=== PATIENT | female | born 1955 | race Caucasian/White ===

== ENCOUNTER 2019-10-10 08:29 | Outpatient (CLI) | payer OTHER, SELFPAY ==
--- NOTE | 2019-10-10 13:22 | PFTS_ITS ---
Date of Study:10/10/19 Date of Dictation: MECHANICS: Forced vital capacity (FVC) is reduced. Forced expiratory volume in one second (FEV1) is reduced. FEV1/FVC is reduced. FLOW VOLUME LOOP: Significant scooping. LUNG VOLUMES: Total lung capacity (TLC) is normal. Residual volume (RV) is increased. DIFFUSING CAPACITY FOR CARBON MONOXIDE: Normal. INTERPRETATION: The pulmonary function tests are consistent with moderate obstruction. There is significant postbronchodilator challenge. Lung volumes are consistent with air trapping. Gas exchange (DLCO) is normal. MTDD
== END 2019-10-10 08:30 | disposition home or self-care (01) ==
LOC: RT 08:33
PROVIDERS: PCP Internal Medicine; Visit Provider Internal Medicine
DX: J43.1 Panlobular emphysema (principal)
CPT/HCPCS: 94060; 94726; 94729; J7611

== ENCOUNTER 2020-03-26 10:50 | Outpatient (CLI) | payer OTHER, SELFPAY ==
--- NOTE | 2020-03-26 10:55 | MM_ITS ---
WS: [id number] BILATERAL DIGITAL SCREENING MAMMOGRAPHY WITH CAD CLINICAL INFORMATION: SCREENING HISTORY: Screening mammogram. No current complaints. COMPARISON: TECHNIQUE: Bilateral CC and MLO views. FINDINGS: Scattered fibroglandular densities bilaterally. No suspicious focal mass, asymmetry, calcifications, or architectural distortion. No evidence of malignancy. Punctate calcification right breast MM/[id number] IMPRESSION: BI-RADS: 2-Benign FOLLOW UP: 1 Year Follow-up Recommend return to annual screening mammography.
== END 2020-03-26 10:51 | disposition home or self-care (01) ==
LOC: RADSHAW 10:53
PROVIDERS: PCP Internal Medicine; Visit Provider Internal Medicine
DX: Z12.31 Encounter for screening mammogram for malignant neoplasm of breast (principal)
CPT/HCPCS: 77067

== ENCOUNTER 2020-08-11 10:21 | Outpatient (CLI) | payer OTHER, SELFPAY ==
--- NOTE | 2020-08-11 10:27 | XR_ITS ---
WS: [id number] Exam: XR knee RT 1-2V [id number] Date/Time of Exam: 08/11/2020 10:27 AM Reason For Exam: RIGHT KNEE PAIN Comparison 05/03/2016. No fracture or dislocation. The joint compartments appear relatively well preserved. No joint effusio n. No change. XR/XR knee RT 1-2V [id number] IMPRESSION: 1. Unremarkable right knee.
== END 2020-08-11 10:22 | disposition home or self-care (01) ==
PROVIDERS: PCP Internal Medicine; Visit Provider Dermatology
DX: Z02.71 Encounter for disability determination (principal); M25.561 Pain in right knee
CPT/HCPCS: 73560

== ENCOUNTER 2021-02-04 08:37 | Outpatient (CLI) | payer OTHER, SELFPAY ==
--- NOTE | 2021-02-04 09:00 | CT_ITS ---
WS: [id number] CT CHEST TECHNIQUE: Contrast enhanced CT of the chest with coronal and sagittal reformatted images. CLINICAL INFORMATION: Follow up COMPARISON: CT 3 DLP: 539.[address] scans at [facility] use at least one of these dose optimization techniques: automated e xposure control; mA and/or kV adjustment per patient size (includes targeted exams where dose is matc hed to clinical indication); or iterative reconstruction. FINDINGS: Stable 5 mm nodule in the lingula. Mild chronic emphysematous changes. No acute pulmonary infiltrates . No focal pneumonia or pleural fluid. Additional tiny stable subpleural nodule right upper lobe lizzie uring 3 mm. Stable tiny perifissure nodule measuring 3 mm left lung. Normal caliber thoracic aorta. Proximal main pulmonary arteries are normal. No mediastinal or hilar l ymphadenopathy. No axillary lymphadenopathy. Adrenal glands are normal. Tiny cyst upper pole left kidney. Small esophageal hiatal hernia. CT/CT chest w con* [id number] IMPRESSION: 1. Previously described 5 mm noncalcified nodule in the lingula is stable. Rec ommend 12 month follow-up. 2. Additional tiny 2 to 3 mm subpleural nodules right upper lobe and along the left fissure also stable. 3. Mild chronic emphysematous changes. No acute pulmonary infiltrates. 4. No mediastinal or hilar lymphadenopathy. 5. Small esophageal hiatal hernia.
[2021-02-04 09:23] LABS: Blood Urea Nitrogen 12 mg/dL (8-23)
[2021-02-04] MEDS: iohexol 300 mg/mL 100 mL Btl IV (09:28)
== END 2021-02-04 08:38 | disposition home or self-care (01) ==
PROVIDERS: PCP Internal Medicine; Visit Provider Internal Medicine
DX: R93.89 Abnormal findings on diagnostic imaging of other specified body structures (principal); K44.9 Diaphragmatic hernia without obstruction or gangrene; R91.8 Other nonspecific abnormal finding of lung field
CPT/HCPCS: 71260; 82565; 84520; Q9967

== ENCOUNTER 2022-01-01 08:10 | Outpatient (CLI) | payer OTHER, SELFPAY ==
--- NOTE | 2022-01-01 08:25 | MM_ITS ---
WS: [id number] BILATERAL SCREENING DIGITAL TOMOSYNTHESIS MAMMOGRAM WITH CAD HISTORY: SCREENING COMPARISON: 03/26/2020 and 07/27/2018 Bilateral CC and MLO views with tomosynthesis and synthetic mammography submitted. Computer aided det ection analyzed. Breast composition: There are scattered areas of fibroglandular density. No suspicious masses, microc alcifications or architectural distortion. Interval change in appearance of the breasts since the floyd or examinations. There is mild diffuse trabecular thickening. Mild skin thickening. MM/[place] [id number] IMPRESSION: BI-RADS: 2-Benign FOLLOW UP: 1 Year Follow-up Mild trabecular prominence and skin thickening involving both breasts. Diffuse process and favor this is probably systemic and may be related to fluid overloa d or CHF.
== END 2022-01-01 08:11 | disposition home or self-care (01) ==
LOC: RAD 08:11
PROVIDERS: PCP Internal Medicine; Visit Provider Internal Medicine
DX: Z12.31 Encounter for screening mammogram for malignant neoplasm of breast (principal)
CPT/HCPCS: 77063; 77067

== ENCOUNTER → 2022-09-28 09:52 | Outpatient (BNVA) | payer MEDICARE, OTHER, SELFPAY | PROVIDERS: PCP Nurse Practitioner Family; Visit Provider Nurse Practitioner Family | DX: L98.9 Disorder of the skin and subcutaneous tissue, unspecified (principal) | CPT/HCPCS: 87070 ==

== ENCOUNTER 2022-10-28 10:02 | Outpatient (CLI) | payer MEDICARE, OTHER, SELFPAY ==
--- NOTE | 2022-10-28 10:08 | MM_ITS ---
WS: [id number] BILATERAL 3D TOMOSYNTHESIS DIGITAL DIAGNOSTIC MAMMOGRAPHY WITH CAD CLINICAL INFORMATION: RT BREAST PAIN HISTORY: RIGHT breast pain COMPARISON: 2021 TECHNIQUE: Bilateral CC, MLO, and ML views. FINDINGS: The breasts are composed of heterogeneous fibroglandular density, which can limit the detection of sm all underlying mass lesions. Punctate and lucent centered calcifications. No new suspicious mammograp hic parenchymal abnormalities in the RIGHT breast visualized. Ultrasound is pending. Mild stable trab ecular thickening in the breasts bilaterally. LEFT breast is unchanged and unremarkable. ULTRASOUND BREAST RIGHT TECHNIQUE: Ultrasound right breast focused area of concern. CLINICAL INFORMATION: RT BREAST PAIN FINDINGS: Ultrasound RIGHT breast in the area of concern upper outer RIGHT breast at the 10:00 position extendi ng from the ribs to the nipple. No cystic or solid lesions. No underlying parenchymal tissues. No abn ormalities in the area of concern. MM/[place] [id number] IMPRESSION: BI-RADS: 2-Benign FOLLOW UP: 1 Year Follow-up Recommend return to annual screening mammography.
== END 2022-10-28 10:03 | disposition home or self-care (01) ==
PROVIDERS: PCP Family Medicine; Visit Provider Family Medicine
DX: N64.4 Mastodynia (principal)
CPT/HCPCS: 76642; 77062; G0279

== ENCOUNTER → 2022-12-31 09:58 | Outpatient (BNVA) | payer MEDICARE, OTHER, SELFPAY | PROVIDERS: PCP Family Medicine; Visit Provider Dermatology | DX: D23.71 Other benign neoplasm of skin of right lower limb, including hip (principal); I78.8 Other diseases of capillaries; L81.4 Other melanin hyperpigmentation; Z08 Encounter for follow-up examination after completed treatment for malignant neoplasm; Z85.828 Personal history of other malignant neoplasm of skin; R20.8 Other disturbances of skin sensation; L82.0 Inflamed seborrheic keratosis; L53.8 Other specified erythematous conditions; L29.8 Other pruritus; L27.0 Generalized skin eruption due to drugs and medicaments taken internally | CPT/HCPCS: 17000; 17003; 17110; 99213 ==

== ENCOUNTER 2023-11-16 14:20 | Outpatient (CLI) | payer MEDICARE, OTHER, SELFPAY ==
--- NOTE | 2023-11-16 14:30 | XR_ITS ---
WS: [id number] SCREENING DEXA SCAN [facility] CLINICAL INFORMATION: postmenopausal COMPARISON: 2019 FINDINGS: The L1-L4 bone mineral density measures 1.239 g/cm2. This corresponds to a T score score of 0.5 and Z score of 2.5. Left femoral neck bone mineral density measures 0.684 g/cm2. This corresponds to a T score of -2.6 an d Z score of -1.0. Right femoral neck bone mineral density measures 0.765 g/cm2. This corresponds to a T score -1.9of an d Z score of -0.4. Mean femoral neck bone mineral density measures 0.724 g/cm2. This corresponds to a T score of -2.2 an d Z score of -0.7. XR/XR DEXA axial skeleton* [id number] IMPRESSION: Normal bone mineralization lumbar spine. Osteopenia femoral necks Patient's FRAX calculated 10 year probability for major osteoporotic fracture i s 27.5% and osteoporotic hip fracture is 13.1%. Bone mineral density lumbar spine has increased 7.5% Bone mineral density femoral necks decreased -9.2%
--- NOTE | 2023-11-16 15:00 | MM_ITS ---
WS: [id number] BILATERAL 3D TOMOSYNTHESIS DIGITAL SCREENING MAMMOGRAPHY WITH CAD CLINICAL INFORMATION: screening HISTORY: Screening mammogram. No current complaints. COMPARISON: None. TECHNIQUE: Bilateral CC and MLO views. FINDINGS: The breasts are composed of heterogeneous fibroglandular density tissue, which can limit the detectio n of small underlying mass lesions. No suspicious mass, asymmetry, calcifications, or architectural d istortion. No evidence of malignancy. A few incidental punctate and lucent centered calcifications. MM/[place] [id number] IMPRESSION: BI-RADS: 2-Benign FOLLOW UP: 1 Year Follow-up Recommend return to annual screening mammography.
== END 2023-11-16 14:21 | disposition home or self-care (01) ==
LOC: RAD 14:21
PROVIDERS: PCP Family Medicine; Visit Provider Family Medicine
DX: Z12.31 Encounter for screening mammogram for malignant neoplasm of breast (principal); Z78.0 Asymptomatic menopausal state
CPT/HCPCS: 77063; 77067; 77080

== ENCOUNTER → 2024-01-02 13:42 | Outpatient (BNVA) | payer MEDICARE, OTHER, SELFPAY | PROVIDERS: PCP Family Medicine; Visit Provider Nurse Practitioner Family | DX: L82.0 Inflamed seborrheic keratosis (principal); D48.5 Neoplasm of uncertain behavior of skin; L57.0 Actinic keratosis; D23.71 Other benign neoplasm of skin of right lower limb, including hip; I78.8 Other diseases of capillaries; L81.4 Other melanin hyperpigmentation; D22.71 Melanocytic nevi of right lower limb, including hip; Z85.828 Personal history of other malignant neoplasm of skin; D23.5 Other benign neoplasm of skin of trunk | CPT/HCPCS: 11102; 17000; 17110; 99213 ==

== ENCOUNTER → 2024-01-17 10:52 | Outpatient (BNVA) | payer MEDICARE, OTHER, SELFPAY | PROVIDERS: PCP Family Medicine; Visit Provider Dermatology | DX: C44.719 Basal cell carcinoma of skin of left lower limb, including hip (principal) | CPT/HCPCS: 17262 ==

== ENCOUNTER 2024-02-16 09:55 | Outpatient (CLI) | payer MEDICARE, OTHER, SELFPAY ==
--- NOTE | 2024-02-16 10:00 | CT_ITS ---
WS: [id number] LDCT LUNG CANCER SCREENING TECHNIQUE: Noncontrast CT of the chest with coronal and sagittal reformatted images. CLINICAL INFORMATION: screening COMPARISON: CT chest thousand 21 DLP: 40.00 mGy.cm DIvol: Mean CTDIvol: 0.70 (mGy) All CT scans at [facility] use at least one of these dose optimization techniques: automat ed exposure control; mA and/or kV adjustment per patient size (includes targeted exams where dose is matched to clinical indication); or iterative reconstruction. FINDINGS: 3 to 4 mm noncalcified nodule in the lingula. Previously described 5 mm nodule in the lingula is now calcified. A few additional tiny 2 to 3 mm subpleural nodules more prominent in the RIGHT upper lobe along the LEFT fissure stable in appearance. Mild chronic emphysematous changes. Small esophageal hiatal hernia. No mediastinal or hilar lymphaden opathy. Lungs are well aerated. Mild thoracic curve. Moderate thoracic kyphosis. Mild aortic calcific ation. Coronary calcification. No axillary lymphadenopathy. CT/CT lung screening [id number] IMPRESSION: LUNG-RADS: 2-Benign Appearance or Behavior FOLLOW UP: 12 Month: Continue annual screening with LDCT
== END 2024-02-16 09:56 | disposition home or self-care (01) ==
LOC: RAD 09:55
PROVIDERS: PCP Family Medicine; Visit Provider Family Medicine
DX: Z12.2 Encounter for screening for malignant neoplasm of respiratory organs (principal); F17.219 Nicotine dependence, cigarettes, with unspecified nicotine-induced disorders; R91.8 Other nonspecific abnormal finding of lung field; M40.204 Unspecified kyphosis, thoracic region; I25.84 Coronary atherosclerosis due to calcified coronary lesion
CPT/HCPCS: 71271

== ENCOUNTER → 2024-05-21 09:27 | Outpatient (BNVA) | payer MEDICARE, OTHER, SELFPAY | PROVIDERS: PCP Family Medicine; Visit Provider Nurse Practitioner Family | DX: I78.8 Other diseases of capillaries (principal); L72.0 Epidermal cyst; D22.5 Melanocytic nevi of trunk; L81.4 Other melanin hyperpigmentation; L57.8 Other skin changes due to chronic exposure to nonionizing radiation; Z08 Encounter for follow-up examination after completed treatment for malignant neoplasm; Z85.828 Personal history of other malignant neoplasm of skin; L57.0 Actinic keratosis | CPT/HCPCS: 17000; 99213 ==

== ENCOUNTER → 2024-08-07 11:13 | Outpatient (BNVA) | payer MEDICARE, OTHER, SELFPAY | PROVIDERS: PCP Family Medicine; Visit Provider Family Medicine | DX: E55.9 Vitamin D deficiency, unspecified (principal); Z13.6 Encounter for screening for cardiovascular disorders | CPT/HCPCS: 80053; 80061; 82306; 84439; 84443; 85025 ==

== ENCOUNTER → 2024-11-19 09:32 | Outpatient (BNVA) | payer MEDICARE, OTHER, SELFPAY | PROVIDERS: PCP Family Medicine; Visit Provider Nurse Practitioner Family | DX: L70.0 Acne vulgaris (principal); D22.5 Melanocytic nevi of trunk; L81.4 Other melanin hyperpigmentation; L57.8 Other skin changes due to chronic exposure to nonionizing radiation; Z08 Encounter for follow-up examination after completed treatment for malignant neoplasm; Z85.828 Personal history of other malignant neoplasm of skin | CPT/HCPCS: 99214 ==